=== PATIENT | male | born 1980 | race Hispanic/Latino ===

== ENCOUNTER 2017-11-27 17:34 | Emergency (ER) | payer SELFPAY ==
[~2017-11-27] VITALS: Ht 167.6 cm; Wt 91.6 kg
[2017-11-27 18:51] LABS: URINE BILIRUBIN - DIPSTICK NEGATIVE (NEGATIVE); URINE BLOOD DIPSTICK SMALL (NEGATIVE); URINE COLOR YELLOW; URINE GLUCOSE - DIPSTICK NEGATIVE (NEGATIVE); URINE KETONE NEGATIVE (NEGATIVE); URINE LEUK ESTERASE NEGATIVE (NEGATIVE); URINE NITRITE - DIPSTICK NEGATIVE (Negative); URINE PH 5.5 (4.5-8.0); URINE PROTEIN - DIPSTICK 100 mg/dL (NEG-TRACE); URINE SPECIFIC GRAVITY >=1.030; URINE UROBILINOGEN - DIPSTICK 0.2 E.U./dL (0.2)
[2017-11-27 18:54] LABS: URINE CLARITY CLEAR
[2017-11-27 19:01] LABS: URINE RBC 0-2 RBC/hpf (0-5)
[2017-11-27 19:10] VITALS: BP 144/84
== END 2017-11-27 19:10 | disposition home or self-care (01) | DRG 730 ==
LOC: ED 17:34
PROVIDERS: Family Medicine
DX: N48.89 Other specified disorders of penis (principal); Z20.2 Contact with and (suspected) exposure to infections with a predominantly sexual mode of transmission

== ENCOUNTER 2017-12-01 13:14 | Emergency (ER) | payer OTHER ==
[~2017-12-01] VITALS: Ht 167.6 cm; Wt 80.0 kg
[2017-12-01 16:42] VITALS: BP 175/80
[2017-12-01] MEDS ORDERED: MOTRIN400 MG PO (16:49)
== END 2017-12-01 16:47 | disposition home or self-care (01) | DRG 552 ==
LOC: ED 13:14
DX: M54.5 Low back pain (principal); A63.0 Anogenital (venereal) warts; W17.89XA Other fall from one level to another, initial encounter; Y93.89 Activity, other specified; Y92.79 Other farm location as the place of occurrence of the external cause